=== PATIENT | female | born 1980 | race American Indian/Alaskan Native ===

== ENCOUNTER 2018-01-12 11:54 | Emergency (ER) | payer MEDICAID ==
[2018-01-12 16:25] LABS: Bilirubin,Urine NEG (Negative); Blood,Urine NEG (Negative); Color,Urine Yellow (Yellow); Mucus,Urine 1+ /HPF; Protein,Urine <15 mg/dL mg/dL (Negative)
[2018-01-12 16:29] LABS: HCG Qualitative,Urine Negative (Negative)
--- NOTE | 2018-01-12 19:11 | Emergency Department Report ---
ED Back Pain/Injury HPI - General Chief Complaint: Back Pain/Injury Stated Complaint: SOB/BACK PAIN Time Seen by Provider: 01/12/18 19:04 Source: patient Limitations: No Limitations - History of Present Illness Initial Comments: 37-year-old morbid obese -[place] female comes in for middle back pain 2 days. Patient reports that the pain is sharp in nature consistent it radiates down her left arm. Patient denies any trauma no cough no recent travels no dysuria no chest pain or shortness of breathing. Patient does report that taking a deep breath makes her back worse as well as with movement. Patient reports that this has been going on for a while but the last 2 days has gotten worse. Patient has not taken anything for pain. She does not work. Currently takes no medications has no known drug allergies and has no past medical history except morbid obesity. Complaint: back pain -: days(s) (2) Similar Symptoms Previously: No Severity scale (0 -10): 8 Quality: sharp Consistency: constant Improves With: none Worsens With: movement, deep breaths/cough Treatments Prior to Arrival: other (none) - Related Data Previous Rx's Medication Instructions Recorded Last Taken Type Naproxen [Naprosyn] 500 mg PO BID #20 tablet 01/12/18 Unknown Rx Allergies Allergy/AdvReac Type Severity Reaction Status Date / Time No Known Allergies Allergy Unverified 01/12/18 13:32 ED Review of Systems ROS: Stated complaint: SOB/BACK PAIN Other details as noted in HPI ED Past Medical Hx - Past Medical History Previous Medical History?: Yes Additional medical history: Morbid obesity - Surgical History Additional Surgical History: c sections, tubal - Social History Smoking Status: Former Smoker Substance Use Type: Alcohol - Medications Home Medications: Home Medications Medication Instructions Recorded Confirmed Last Taken Type Naproxen [Naprosyn] 500 mg PO BID #20 tablet 01/12/18 Unknown Rx ED Physical Exam - General Limitations: No Limitations ED Course Vital Signs 01/12/18 13:09 Temperature 97.9 F Pulse Rate 73 Respiratory 18 Rate Blood Pressure 119/77 Blood Pressure 119/77 [Right] O2 Sat by Pulse 99 Oximetry ED Medical Decision Making - Radiology Data Chest x-ray normal examination - Medical Decision Making Patient has been evaluated by this provider fast track. Toradol 30 mg IM given to patient for pain management. I ordered chest x-ray secondary to patient being obese with pain with deep breath. X-ray shows normal examination. Patient reports that she feels much better after having Toradol injection. I discussed the patient I will discharge her home on naproxen 500 mg twice a day. Patient is to follow-up with her primary care provider or [facility] if symptoms persist or gets worse. Critical care attestation.: If time is entered above; I have spent that time in minutes in the direct care of this critically ill patient, excluding procedure time. ED Disposition Clinical Impression: Acute back pain Qualifiers: Back pain location: thoracic back pain Back pain laterality: left Qualified Code(s): M54.6 - Pain in thoracic spine Disposition: - TO HOME OR SELFCARE Is pt being admited?: No Does the pt Need Aspirin: No Condition: Stable Instructions: Back Pain (ED), Naproxen (By mouth) Additional Instructions: Please take pain medication as needed. I recommend eating prior to taking medication. If her symptoms persist or gets worse please follow up with her primary care provider or [facility]. Prescriptions: Naproxen [Naprosyn] 500 mg PO BID #20 tablet Referrals: PRIMARY CARE, [Primary Care Provider] - 3-5 Days [facility] [Provider Group] - 3-5 Days
[2018-01-12] MEDS ORDERED: TORADOL IM ONE (19:19)
--- NOTE | 2018-01-12 20:13 | XRay Report ---
FINAL REPORT PROCEDURE: XR CHEST ROUTINE 2V TECHNIQUE: PA and lateral chest radiographs were obtained. CPT 83749 HISTORY: back pain with sob with obesity COMPARISON: No prior studies are available for comparison. FINDINGS: Heart: Normal. Mediastinum/Vessels: Normal. Lungs/Pleural space: Normal. Bony thorax: No acute osseous abnormality. Other: IMPRESSION: Normal examination.
[2018-01-12 21:06] VITALS: BP 123/75
== END 2018-01-12 21:07 | disposition home or self-care (01) ==
LOC: ED 11:54
DX: M54.6 Pain in thoracic spine (principal); E66.01 Morbid (severe) obesity due to excess calories; Z68.44 Body mass index [BMI] 60.0-69.9, adult; Z87.891 Personal history of nicotine dependence; Z98.51 Tubal ligation status
CPT/HCPCS: 71046; 81001; 81025; 96372; 99283; J1885